=== PATIENT | female | born 1995 | race Hispanic/Latino ===

== ENCOUNTER 2017-06-23 17:41 | Emergency (ER) | payer OTHER ==
[~2017-06-23] VITALS: Ht 175.3 cm; Wt 111.1 kg
--- OUTSIDE RECORDS SUMMARY | 2017-06-23 17:43 | XMS REPORT | Clinical Summary ---
Author Author [facility] Address Unknown Phone Unavailable Care Team Providers Care Linter Tender Name Role Phone Asked, Pcp PCP Unavailable Allergies No Known Allergies Current Medications Prescription Sig. Disp. Refills Start End Date Status Date L Take 1 tablet by mouth 84 tablet 3 04/30/19 04/30/19 Active norgest/e.estradiol-e.est daily. 18 19 rad (AMETHIA LO) 0.10 mg-20 mcg (84)/10 mcg (7) tablets,dose pack,3 month fluconazole (DIFLUCAN) Take 1 tablet (150 mg 1 tablet 0 01/15/20 150 MG tablet total) by mouth once for 17 17 1 dose. Hospital, Clinic, or Ordered Dose Route Frequency Start End Date Status Other Facility Date Administered Medication copper (PARAGARD) 380 utrn once 01/16/20 01/16/20 Discontin square mm IUDIndications: 17 17 ued Contraception, device intrauterine Active Problems Not on file Encounters Date Type Specialty Care Team Description 04/29/2017 Office Visit Obstetrics and Gynecology Robin Spivey MD Encounter for initial prescription of contraceptive pills (Primary Dx) 02/06/2017 Procedure Pass Obstetrics and Gynecology 01/15/2017 Procedure visit Obstetrics and Gynecology Robin Spivey MD Contraception, device intrauterine (Primary Dx); Pelvic pain in female 01/09/2017 Telephone Obstetrics and Gynecology Robin Spivey MD 01/07/2017 Office Visit Obstetrics and Gynecology Robin Spivey MD Gynecologic exam normal (Primary Dx); Acute vaginitis; Irregular menses 11/30/2016 Emergency Emergency Medicine Nahun Riley MD Sprain of right ankle, unspecified ligament, initial encounter (Primary Dx) 10/10/2016 Telephone Neuropsychology Kristofer Cherry, PhD after 06/22/2016 Social History Tobacco Use Types Packs/Day Years Used Date Never Smoker Smokeless Tobacco: Never Used Alcohol Use Drinks/Week oz/Week Comments No Sex Assigned at Date Recorded Not on file Last Filed Vital Signs Vital Sign Reading Time Taken Blood Pressure 133/87 01/07/2017 3:05 PM TWIST TE[facility] Pulse 83 01/07/2017 3:05 PM [facility] Temperature 37.2 C (99 F) 11/30/2016 6:27 PM CDT Respiratory Rate 16 11/30/2016 6:27 PM CDT Oxygen Saturation 97% 11/30/2016 6:27 PM CDT Inhaled Oxygen - - Concentration Weight 116 kg (256 lb) 01/07/2017 3:05 PM TW[facility] TE[facility] Height 174 cm (5' 8.5") 01/07/2017 3:05 PM TWIST TESTER Body Mass Index 38.36 01/07/2017 3:05 PM TWIST TESTER Plan of Treatment Health Maintenance Due Date Last Done Comments CHLAMYDIA SCREENING 2011 PAP SMEAR 07/12/2016 INFLUENZA VACCINE 09/18/2017 01/30/2012, 12/22/2007, 02/07/2007, Additional history exists Procedures Procedure Name Priority Date/Time Associated Diagnosis Comments SPLINT APPLICATION Routine 11/30/2016 Results for this 7:59 PM CDT procedure are in the results section. after 06/22/2016 Results * hCG quantitative, serum (01/15/2017 3:43 PM) Only the most recent of 2 results within the time period is included. Component Value Ref Range hCG quantitative, serum <1 mIU/mL Comment: Female (Non-) 0 - 5 (Postmenopausal) 0 - 8 Female () Weeks of Gestation 3 6 - 71 4 10 - 750 5 376 - 2626 6 158 - 50251 7 7876 -[phone] 8 66622 -722205 9 [id number] -[id number] 10 07731 -487927 12 95849 -851712 14 05901 - 61049 15 84324 - 39246 16 2831 - 24758 17 5929 - 82361 18 4481 - 19352 Rubi ECLIA methodology Specimen Performing Laboratory [facility] Narrative Performed at:[address] [place], [place] [id number] Tobacco Curer: Antoine Baker MD, Phone:[phone] * HIV 1/2 ANTIGEN/ANTIBODY, FOURTH GENERATION W/RFL (01/07/2017 4:22 PM) Component Value Ref Range HIV AG/AB 4th gen Non Reactive Non Reactive Specimen Performing Laboratory [facility] Narrative Performed at:[id number] Tobacco Curer: Antoine Baker MD, Phone:[phone] * RPR screen (01/07/2017 4:22 PM) Component Value Ref Range RPR Non Reactive Non Reactive Specimen Performing Laboratory Blood [facility] Narrative Performed at:[id number] Tobacco Curer: Antoine Baker MD, Phone:[phone] * CBC with platelet and differential (01/07/2017 4:22 PM) Component Value Ref Range WBC 10.7 3.4 - 10.8 x10E3/uL RBC 5.17 3.77 - 5.28 x10E6/uL HGB 14.3 11.1 - 15.9 g/dL Comment: Effective January 21, 2017 the reference interval for Hemoglobin MALES only will be changing to: Ma les 13-15 years: 12.6 - 17.7 Ma les >15 years: 13.0 - 17.7 HCT 42.3 34.0 - 46.6 % MCV 82 79 - 97 fL MCH 27.7 26.6 - 33.0 pg MCHC 33.8 31.5 - 35.7 g/dL RDW 14.9 12.3 - 15.4 % Platelet count 376 150 - 379 x10E3/uL Neutrophils 68 Not Estab. % Lymphocytes 25 Not Estab. % Monocytes 6 Not Estab. % Eosinophils 1 Not Estab. % Basophils 0 Not Estab. % Neutrophils, absolute 7.2 (H) 1.4 - 7.0 x10E3/uL Lymphocytes, absolute 2.7 0.7 - 3.1 x10E3/uL Monocytes, absolute 0.7 0.1 - 0.9 x10E3/uL Eosinophils, absolute 0.1 0.0 - 0.4 x10E3/uL Basophils, absolute 0.0 0.0 - 0.2 x10E3/uL Immature granulocytes 0 Not Estab. % Immature grans (abs) 0.0 0.0 - 0.1 x10E3/uL Specimen Performing Laboratory Blood [facility] Narrative Performed at: [id number] Tobacco Curer: Antoine Baker MD, Phone:[phone] * Thyroid stimulating hormone (01/07/2017 4:22 PM) Component Value Ref Range TSH 1.120 0.450 - 4.500 uIU/mL Specimen Performing Laboratory Blood [facility] Narrative Performed at: [id number] Tobacco Curer: Antoine Baker MD, Phone:[phone] * Follicle stimulating hormone (01/07/2017 4:22 PM) Component Value Ref Range Follicle stimulating 4.4 mIU/mL hormone Comment: Adult Female: Follic ular phase 3.5 - 12.5 Ovulat ion phase 4.7 - 21.5 Luteal phase 1.7 - 7.7 Postme nopausal 25.8 - 134.8 Specimen Performing Laboratory Blood [facility] Narrative Performed at: [id number] Tobacco Curer: Antoine Baker MD, Phone:[phone] * Pap IG, rfx HPV all pth (01/07/2017 3:45 PM) Component Value Ref Range Diagnosis CommentComment: NEGATIVE FOR INTRAEPITHELIAL LESION AND MALIGNANCY. Specimen adequacy Comment Comment: Satisfactory for evaluation. Endocervical and/or squamous metaplastic cells (endocervical component) are present. Clinician provided ICD10 CommentComment: Z01.419 Performed by: CommentComment: Vilma Ruano, Plastic Card Grader Cardroom (ASCP) Comment . Note: Comment Comment: The Pap smear is a screening test designed to aid in the detection of premalignant and malignant conditions of the uterine cervix. It is not a diagnostic procedure and should not be used as the sole means of detecting cervical cancer. Both false-positive and false-negative reports do occur. Test methodology Comment Comment: This liquid based ThinPrep(R) pap test was screened with the use of an image guided system. Reflex Comment Comment: The HPV DNA reflex criteria were not met with this specimen result therefore, no HPV testing was performed. Specimen Performing Laboratory [facility] Narrative Performed at: [address] [id number] Tobacco Curer: Katarina Anguiano MD, Phone:[phone] Specimen Comment: Source.............Cervix;Endocervix Specimen Comment: No. of containers..01 ThinPrep Vial * NuSwab Vaginitis Plus (VG+) (01/07/2017 3:45 PM) Component Value Ref Range Atopobium vaginae Low - 0 Score BVAB 2 Low - 0 Score Megasphaera species Low - 0 Score Comment: Calculate total score by adding the 3 individual bacterial vaginosis (BV) marker scores together. Total score is interpreted as follows: Total score 0-1: Indicates the absence of BV. Total score 2: Indeterminate for BV. Additional clinical data should be evaluated to establish a diagnosis. Total score 3-6: Indicates the presence of BV. This test was developed and its performance characteristics determined by [facility]. It has not been cleared or approved by the Food and Drug Administration. The FDA has determined that such clearance or approval is not necessary. Sadaf albicans, CHAI Positive (A) Negative C. glabrata, DNA Negative Negative Comment: This test was developed and its performance characteristics determined by [facility]. It has not been cleared or approved by the Food and Drug Administration. The FDA has determined that such clearance or approval is not necessary. Trichomonas vag by CHAI Negative Negative Chlamydia trachomatis, Negative Negative CHAI Neisseria gonorrhoeae, Negative Negative CHAI Specimen Performing Laboratory [facility] Narrative Performed at:01 - [id number] Tobacco Curer: Bishnu Powell MD, Phone:[phone] * SPLINT APPLICATION (11/30/2016 7:59 PM) Narrative Nahun Riley MD 11/30/20167:59 PM Splint Application Performed by: NAHUN RILEY Authorized by: NAHUN RILEY Consent: Consent obtained:Verbal Consent given by:Patient Risks discussed:Pain and numbness Alternatives discussed:No treatment Pre-procedure details: Sensation:Normal Procedure details: Laterality:Right Location:Ankle Ankle:R ankle Splint type:Strapping Supplies:Prefabricated splint Post-procedure details: Pain:Unchanged Sensation:Normal Patient tolerance of procedure:Tolerated well, no immediate complications * XR Ankle 3+ Vw Right (11/30/2016 6:46 PM) Specimen Performing Laboratory [facility] [address] [place] [address] Narrative PROCEDURE:XR ANKLE 3VW RIGHT CLINICAL HISTORY:[place] POSITIVE COMPARISON:None. TECHNIQUE: 3 views of the right ankle were performed in the AP, internal oblique, and lateral projections. FINDINGS: No acute fracture, dislocation, periosteal reaction, or bone destruction is demonstrated of the bones about the ankle. The ankle mortise is preserved. IMPRESSION: No acute bony abnormality. [facility]-[id number] . Procedure Note Interface, Radiology Results Incoming - 11/30/2016 6:52 PM CDT PROCEDURE: XR ANKLE 3 VW RIGHT CLINICAL HISTORY: ANKLE TRAUMA [place] RESERVATION RULES POSITIVE COMPARISON: None. TECHNIQUE: 3 views of the right ankle were performed in the AP, internal oblique, and lateral projections. FINDINGS: No acute fracture, dislocation, periosteal reaction, or bone destruction is demonstrated of the bones about the ankle. The ankle mortise is preserved. IMPRESSION: No acute bony abnormality. [facility]-[id number] . after 06/22/2016 Insurance Payer Benefit Subscriber ID Type Phone Address Plan / Group [facility] xxxxxxxxx HMO/PPO THCARE CHOICE/CHO ICE +
[2017-06-23] MEDS ORDERED: METHYLPREDNISOLONE SOD SUCC 125 MG/2ML VIAL IM ONE (18:00)
== END 2017-06-23 18:20 | disposition home or self-care (01) ==
LOC: FSED 17:41
DX: L50.9 Urticaria, unspecified (principal)
CPT/HCPCS: 99283; J2930